=== PATIENT | female | born 1970 | race Caucasian/White ===

== ENCOUNTER → 2022-03-07 14:39 | Outpatient (CLI) | payer OTHER, SELFPAY ==
--- NOTE | 2022-03-07 14:47 | DI.RAD.S_ITS ---
PROCEDURE: XR SHOULDER LT MIN 2V INDICATIONS: SHOULDER PAIN TECHNIQUE: 3 views of the shoulder were acquired. COMPARISON: None. FINDINGS: Bones: No fractures or dislocations. No suspicious bony lesions. Visualized ribs appear intact. Soft tissues: No suspicious soft tissue calcifications. IMPRESSION: No acute radiographic findings. Dictated by: Kimberly Anderson M.D. on 03/07/2022 at 16:02 Approved by: Kimberly Anderson M.D. on 03/07/2022 at 16:03
== END ==
PROVIDERS: PCP Registered Nurse; Referring Provider Registered Nurse; Visit Provider Registered Nurse
DX: M25.512 Pain in left shoulder (principal)
CPT/HCPCS: 73030

== ENCOUNTER → 2023-11-17 11:20 | Outpatient (CLI) | payer OTHER, SELFPAY ==
--- NOTE | 2023-11-17 | DI.RAD.S_ITS ---
PROCEDURE: XR KNEE LT 1TO2V INDICATIONS: ARTHRITIS TECHNIQUE: 2 views of the knee were acquired. COMPARISON: None. FINDINGS: Bones: No fractures or dislocations. No suspicious bony lesions. Soft tissues: No joint effusion. No suspicious soft tissue calcifications. IMPRESSION: No acute bony abnormality or significant effusion. No osteoarthritis or erosive arthritis. Dictated by: Kimberly Anderson M.D. on 11/17/2023 at 13:08 Approved by: Kimberly Anderson M.D. on 11/17/2023 at 13:09
--- NOTE | 2023-11-17 | DI.RAD.S_ITS ---
PROCEDURE: XR HAND LT 2V INDICATIONS: ARTHRITIS TECHNIQUE: 2 views of the hand(s) acquired. COMPARISON: None. FINDINGS: Bones: No fractures or dislocations. Carpal bones are normally aligned. No suspicious bony lesions. There is mild joint space narrowing at the 1st CMC joint. No periarticular osteopenia or suspicious bony erosions. Soft tissues: No suspicious soft tissue calcifications. IMPRESSION: No acute bony abnormality. 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 No findings to suggest erosive arthritis. Dictated by: Kimberly Anderson M.D. on 11/17/2023 at 13:07 Approved by: Kimberly Anderson M.D. on 11/17/2023 at 13:08
--- NOTE | 2023-11-17 | DI.RAD.S_ITS ---
PROCEDURE: XR HAND RT 2V INDICATIONS: ARTHRITIS TECHNIQUE: 2 views of the hand(s) acquired. COMPARISON: None. FINDINGS: Bones: No fractures or dislocations. Carpal bones are normally aligned. No suspicious bony lesions. Mild degenerative changes present at the 1st CMC joint. No periarticular osteopenia or bony erosions. Soft tissues: No suspicious soft tissue calcifications. IMPRESSION: No acute bony abnormality. Mild 1st CMC joint osteoarthritis. No findings to suggest erosive arthritis. Dictated by: Kimberly Anderson M.D. on 11/17/2023 at 13:08 Approved by: Kimberly Anderson M.D. on 11/17/2023 at 13:08
--- NOTE | 2023-11-17 | DI.RAD.S_ITS ---
PROCEDURE: XR KNEE RT 1TO2V INDICATIONS: ARTHRITIS TECHNIQUE: 2 views of the knee were acquired. COMPARISON: None. FINDINGS: Bones: No fractures or dislocations. No suspicious bony lesions. There is a small patellar enthesophyte. Small intercondylar osteophytes and lateral compartment osteophytes are noted. Soft tissues: No joint effusion. No suspicious soft tissue calcifications. IMPRESSION: Mild osteoarthritis. No findings to suggest erosive arthritis. Dictated by: Kimberly Anderson M.D. on 11/17/2023 at 13:09 Approved by: Kimberly Anderson M.D. on 11/17/2023 at 13:09
== END ==
PROVIDERS: PCP Registered Nurse; Referring Provider Family Medicine; Visit Provider Family Medicine
DX: M17.11 Unilateral primary osteoarthritis, right knee (principal); M18.0 Bilateral primary osteoarthritis of first carpometacarpal joints
CPT/HCPCS: 73120; 73560